=== PATIENT | male | born 2000 | race Hispanic/Latino ===

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

== ENCOUNTER 2021-11-30 06:50 | Outpatient (CLI) | payer OTHER | END 2021-11-30 06:51 | disposition home or self-care (01) | LOC: BICULT 06:50 | PROVIDERS: ATTEND Nurse Practitioner Family | DX: N50.811 Right testicular pain (principal) | CPT/HCPCS: 76870; 93976 ==